=== PATIENT | female | born 1965 | race Caucasian/White ===

== ENCOUNTER 2020-09-26 21:32 | Emergency (ER) | payer MEDICARE ==
[2020-09-26] MEDS ORDERED: Acetaminophen 500 MG TAB ONE ×2 (22:14→22:36)
== END 2020-09-26 23:40 | disposition home or self-care (01) ==
LOC: CSHERS 21:32
DX: M54.2 Cervicalgia (principal); E10.9 Type 1 diabetes mellitus without complications; E78.5 Hyperlipidemia, unspecified; E78.00 Pure hypercholesterolemia, unspecified; I10 Essential (primary) hypertension; F17.210 Nicotine dependence, cigarettes, uncomplicated; W05.0XXA Fall from non-moving wheelchair, initial encounter
CPT/HCPCS: 36416; 70450; 71045; 72125